=== PATIENT | male | born 1990 | race Two or more races ===

== ENCOUNTER 2024-06-20 21:19 | Emergency (ER) | payer SELFPAY ==
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
[2024-06-20 21:34] VITALS: BP 117/76; PULSE 102; RESP 16; TEMP 37.2; O2SAT 96
== END 2024-06-20 21:35 | disposition home or self-care (01) ==
LOC: SERX 22:33
PROVIDERS: Emergency Provider Emergency Medicine
DX: Z02.89 Encounter for other administrative examinations (principal)
CPT/HCPCS: 99281